=== PATIENT | male | born 2000 | race Caucasian/White ===

== ENCOUNTER 2020-05-20 17:55 | Emergency (ER) | payer OTHER ==
[2020-05-20] MEDS ORDERED: Sodium Chloride 0.9% 10 ML Syringe FLUSH PRN (18:23)
[2020-05-20] MEDS ORDERED: Ketorolac 30 MG/ML SDV IVPUSH ONE (18:23)
[2020-05-20] MEDS ORDERED: diphenhydrAMINE 50 MG/ML SDV IVPUSH ONE (18:23)
[2020-05-20] MEDS ORDERED: Metoclopramide 10 MG/2 ML SDV IVPUSH ONE (18:23)
[2020-05-20] MEDS ORDERED: Sodium Chloride 0.9% 1,000 ML IV ONE (18:28)
--- NOTE | 2020-05-20 18:35 | EDM.PDOC ---
ED HPI GENERAL MEDICAL PROBLEM - General Chief Complaint: Headache Stated Complaint: HEADACHE Time Seen by Provider: 05/20/20 18:15 Source of Information: Reports: Patient, RN Notes Reviewed History Limitations: Reports: No Limitations - History of Present Illness INITIAL COMMENTS - FREE TEXT/NARRATIVE: Patient is a 20-year-old male who presents to the ED for the evaluation of his headache. Patient notes that this headache has been present for the last couple days, he is also complaining of generalized fatigue, swollen lymph nodes, and states that he had mono in the past, this does feel similar in nature. He states his last "flare of mono" was 4 years ago. Patient states that he is having a headache, general malaise/fatigue, swollen lymph nodes, but no fevers or chills, cough shortness of breath or any sort of sore throat. Patient states he has not really tried much at home for medications, as he notes nothing really seems to make him feel better. Patient is not known to be around anyone that is had sick symptoms, or anyone known to have COVID. Headache Pain Score (Numeric/FACES): 3 - Related Data Allergies Allergy/AdvReac Type Severity Reaction Status Date / Time No Known Allergies Allergy Verified 05/20/20 18:19 Home Meds: Home Meds . [No Known Home Meds] 05/20/20 [History] Past Medical History - Past Health History Medical/Surgical History: Denies Medical/Surgical History Immunologic History: Reports: Other (See Below) Other Immunologic History: mono 2013 Social & Family History - Tobacco Use Smoking Status *Q: Never Smoker - Caffeine Use Caffeine Use: Reports: Coffee, Soda ED ROS GENERAL - Review of Systems Review Of Systems: Comprehensive ROS is negative, except as noted in HPI. - Physical Exam Exam: See Below Exam Limited By: No Limitations General Appearance: Alert, WD/WN, No Apparent Distress Eye Exam: Bilateral Eye: Normal Inspection Ears: Normal External Exam Nose: Normal Inspection Throat/Mouth: Normal Inspection, Normal Lips, Normal Teeth, Normal Gums, Normal Oropharynx, Normal Voice, No Airway Compromise Head Exam: Atraumatic, Normocephalic Neck: Normal Inspection, Supple, Non-Tender, Full Range of Motion, Lymphadenopathy (L) (several discrete shoddy nodes), Lymphadenopathy (R) Respiratory/Chest: No Respiratory Distress, Lungs Clear, Normal Breath Sounds, No Accessory Muscle Use, Chest Non-Tender Cardiovascular: Normal Peripheral Pulses, Regular Rate, Rhythm, No Murmur GI/Abdominal: Normal Bowel Sounds, Soft, Non-Tender, No Distention, No Mass Neuro Exam (Abbreviated): Alert, Oriented, Normal Cognition, No Motor/Sensory Deficits Back Exam: Normal Inspection Extremities: Normal Inspection, Normal Range of Motion, Normal Capillary Refill Psychiatric: Normal Affect, Normal Mood Skin Exam: Warm, Dry, Intact, Normal Color, No Rash Course - Vital Signs Last Recorded V/S: Last Vital Signs Temp 98.6 F 05/20/20 18:13 Pulse 81 05/20/20 18:13 Resp 16 05/20/20 18:13 BP 140/89 05/20/20 18:13 Pulse Ox 96 05/20/20 18:13 - Orders/Labs/Meds Orders: Active Orders 24 hr Category Date Time Status Peripheral IV Care [RC] . DIRECTED Care 05/20/20 18:23 Ordered Sodium Chloride 0.9% [Saline Flush] Med 05/20/20 18:23 Ordered 10 ml FLUSH ASDIRECTED PRN Peripheral IV Insertion Adult [OM.PC] Routine Oth 05/20/20 18:23 Ordered Medication Orders Sodium Chloride (Saline Flush) 10 ml FLUSH ASDIRECTED PRN PRN Reason: Keep Vein Open Last Admin: 05/20/20 18:46 Dose: 10 ml Documented by: RICHIE Labs: Laboratory Tests 05/20/20 05/20/20 05/20/20 Range/Units 18:50 18:50 18:50 WBC 5.71 (4.23-9.07) K/mm3 RBC 5.06 (4.63-6.08) M/mm3 Hgb 15.4 (13.7-17.5) gm/dl Hct 45.0 (40.1-51.0) % MCV 88.9 (79.0-92.2) fl MCH 30.4 (25.7-32.2) pg MCHC 34.2 (32.2-35.5) g/dl RDW Std Deviation 38.5 (35.1-43.9) fL Plt Count 273 (163-337) K/mm3 MPV 9.5 (9.4-12.3) fl Neut % (Auto) 60.7 (34.0-67.9) % Lymph % (Auto) 25.9 (21.8-53.1) % [place] % (Auto) 9.3 (5.3-12.2) % Eos % (Auto) 3.5 (0.8-7.0) Baso % (Auto) 0.4 (0.1-1.2) % Neut # (Auto) 3.47 (1.78-5.38) K/mm3 Lymph # (Auto) 1.48 (1.32-3.57) K/mm3 [place] # (Auto) 0.53 (0.30-0.82) K/mm3 Eos # (Auto) 0.20 (0.04-0.54) K/mm3 Baso # (Auto) 0.02 (0.01-0.08) K/mm3 Sodium 140 (136-145) mEq/L Potassium 4.4 (3.5-5.1) mEq/L Chloride 104 (98-107) mEq/L Carbon Dioxide 28 (21-32) mEq/L Anion Gap 12.4 (5-15) BUN 15 (7-18) mg/dL Creatinine 1.0 (0.7-1.3) mg/dL Est Cr Clr Drug Dosing 129.33 mL/min Estimated GFR (MDRD) > 60 (>60) mL/min BUN/Creatinine Ratio 15.0 (14-18) Glucose 103 (74-106) mg/dL Calcium 9.1 (8.5-10.1) mg/dL Total Bilirubin 0.5 (0.2-1.0) mg/dL AST 21 (15-37) U/L ALT 28 (16-63) U/L Alkaline Phosphatase 83 (46-116) U/L Total Protein 7.7 (6.4-8.2) g/dl Albumin 4.3 (3.4-5.0) g/dl Globulin 3.4 gm/dL Albumin/Globulin Ratio 1.3 (1-2) Monoscreen Negative (NEGATIVE) Meds: Medications Generic Name Dose Route Start Last Admin Trade Name Freq PRN Reason Stop Dose Admin Sodium Chloride 10 ml 05/20/20 18:23 05/20/20 18:46 Saline Flush FLUSH 10 ml ASDIRECTED PRN Administration Keep Vein Open Discontinued Medications Generic Name Dose Route Start Last Admin Trade Name Freq PRN Reason Stop Dose Admin Diphenhydramine HCl 25 mg 05/20/20 18:23 05/20/20 18:46 Benadryl IVPUSH 05/20/20 18:24 25 mg ONETIME ONE Administration Sodium Chloride 1,000 mls @ 999 mls/hr 05/20/20 18:28 05/20/20 18:46 Normal Saline IV 05/20/20 19:28 999 mls/hr ONETIME ONE Administration Ketorolac Tromethamine 30 mg 05/20/20 18:23 05/20/20 18:46 Toradol IVPUSH 05/20/20 18:24 30 mg ONETIME ONE Administration Metoclopramide HCl 10 mg 05/20/20 18:23 05/20/20 18:46 Reglan IVPUSH 05/20/20 18:24 10 mg ONETIME ONE Administration - Re-Assessments/Exams Free Text/Narrative Re-Assessment/Exam: 05/20/20 18:33 Patient presents to the ED for the evaluation of his headache. Have ordered some basic labs for evaluation, will give him IV fluids, Benadryl, Toradol, Reglan for management. 05/20/20 19:41 Laboratory evaluation is unremarkable, Monospot is negative. Patient did report some symptomatic relief with the medication, and would like to go home at this time. I did give him general recommendations, and recommended that he follow-up with another provider in a few days, or a week or so if he is not feeling much better. He agreed to do so. Departure - Departure Time of Disposition: 19:42 Disposition: Home, Self-Care 01 Condition: Good Clinical Impression: Generalized headache Fatigue Qualifiers: Fatigue type: unspecified Qualified Code(s): R53.83 - Other fatigue - Discharge Information *PRESCRIPTION DRUG MONITORING PROGRAM REVIEWED*: No *COPY OF PRESCRIPTION DRUG MONITORING REPORT IN PATIENT PAULA: No Instructions: General Headache Without Cause, [id number] Referrals: PCP,None [Primary Care Provider] - Forms: ED Department Discharge Additional Instructions: You were evaluated in the ED for your headache. You were given a combination of medications and IV fluid for management. This did seem to provide you pretty good relief of your symptoms. Recommend that you go home and rest in a quiet, darkened room. Try also to keep well hydrated. Laboratory evaluation at today's visit, was unremarkable, your liver enzymes are within normal limits, your Monospot was negative. You are not suffering from a bacterial infection. Recommend you go home with these general conservative measures, and if you are not feeling much better in a week to 10 days time, please seek care for re-evaluation. Please return to the ED if your symptoms should change or worsen. Sepsis Event Note (ED) - Evaluation Sepsis Screening Result: No Definite Risk - Focused Exam Vital Signs: Vital Signs Temp Pulse Resp BP Pulse Ox 05/20/20 18:13 98.6 F 81 16 140/89 96 - My Orders Last 24 Hours: My Active Orders 05/20/20 18:23 Peripheral IV Care [RC] . DIRECTED Sodium Chloride 0.9% [Saline Flush] 10 ml FLUSH ASDIRECTED PRN Peripheral IV Insertion Adult [OM.PC] Routine - Assessment/Plan Last 24 Hours: My Active Orders 05/20/20 18:23 Peripheral IV Care [RC] . DIRECTED Sodium Chloride 0.9% [Saline Flush] 10 ml FLUSH ASDIRECTED PRN Peripheral IV Insertion Adult [OM.PC] Routine
== END 2020-05-20 19:53 | disposition home or self-care (01) ==
LOC: JD.ED 17:55
DX: R51 Headache (principal); R53.83 Other fatigue
CPT/HCPCS: 36415; 80053; 85025; 86308; 96374; 96375; 99284; J1200; J1885; J2765; J7030; 99283